=== PATIENT | female | born 2000 | race Two or more races ===

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

== ENCOUNTER 2019-08-29 21:56 | Emergency (ER) | payer MEDICAID ==
[~2019-08-29] VITALS: Ht 167.6 cm; Wt 80.0 kg
[~2019-08-29 21:56] MED LIST: PNV1TABL76 PO
[2019-08-29 23:34] VITALS: BP 112/66
== END 2019-08-29 23:45 | disposition home or self-care (01) ==
LOC: ER 21:56
DX: F33.8 Other recurrent depressive disorders (principal)
CPT/HCPCS: 99284